=== PATIENT | female | born 1995 | race Caucasian/White ===

== ENCOUNTER 2020-05-27 12:50 | Emergency (ER) | payer OTHER, SELFPAY ==
[2020-05-27 13:07] VITALS: BP 133/77; PULSE 95; RESP 16; TEMP 36.8; O2SAT 100
--- NOTE | 2020-05-27 13:14 | ED.WOUNDLAC ---
HPI - Wound/Laceration General Chief Complaint: Wound/Laceration Stated Complaint: wound/sutures Time Seen by Provider: 05/27/20 13:09 Source: patient and RN notes reviewed Mode of arrival: ambulatory Limitations: no limitations History of Present Illness HPI narrative: Patient presents today complaining of a laceration to the left knee that was sustained 3 hours prior to arrival. Patient slipped in some water and fell as she was entering a truck, possibly cutting herself on a metal side rail. She is not up-to-date on her tetanus vaccine. Currently rates her pain 5/10. She cleaned with alcohol and applied a Band-Aid after the injury. She also took some ibuprofen. Related Data Home Medications Medication Instructions Recorded Confirmed paroxetine HCl mg PO 05/27/20 Allergies Allergy/AdvReac Type Severity Reaction Status Date / Time cyclobenzaprine Allergy Intermediate Confusion Verified 09/21/19 10:40 nickel Allergy Mild Hives / Verified 09/21/19 10:40 Red Face Review of Systems Review of Systems: Narrative: CONSTITUTIONAL: Denies body aches, fever, chills, or sweats. EYES: Denies visual changes, redness, or discharge. ENT: Denies rhinorrhea, congestion, sore throat, or otalgia. CARDIOVASCULAR: Denies chest pain, palpitations, or edema. RESPIRATORY: Denies cough or dyspnea. GASTROINTESTINAL: Denies abdominal pain, nausea, vomiting, or diarrhea. GENITOURINARY: Denies dysuria or hematuria. SKIN: Denies rash, itching. + Laceration to left knee MUSCULOSKELETAL: Denies back pain, joint pain, or myalgia. NEUROLOGIC: Denies headache, numbness, tingling, or weakness. PSYCH: Denies depression or anxiety. PMFSH Social History Social History Smoking status: Never smoker Second hand tobacco smoke exposure: No Alcohol intake: never Comments At time of signature, I have reviewed and agree with nursing past medical, surgical, social and family history unless otherwise noted. Please see nursing chart for further information. There is no relevant family history pertinent to the presenting complaint Exam Narrative: Exam Narrative: GENERAL: Well-appearing, well-nourished, and in no acute distress. HEAD: Normocephalic, atraumatic. EYES: EOMI. No redness or drainage. Conjunctivae normal. ENT: Mucous membranes pink and moist. NECK: Normal AROM. CHEST: No respiratory distress. EXTREMITIES: Normal range of motion. No edema. SKIN: Warm, dry, no rash. Capillary refill normal. Normal skin turgor.2.5cm full thickness flap laceration. No active bleeding, surrounding erythema, edema, or ecchymosis. No bony tenderness of the knee. NEURO: No focal deficits. Alert and oriented x3. Gait steady. PSYCH: Normal affect. No signs of depression or anxiety. Course Vital Signs Vital signs: Vital Signs Temperature 98.2 F 05/27/20 13:07 Pulse Rate 95 05/27/20 13:07 Respiratory Rate 16 05/27/20 13:07 Blood Pressure 133/77 05/27/20 13:07 Pulse Oximetry 100 05/27/20 13:07 Temperature 98.2 F 05/27/20 13:07 Pulse Rate 95 05/27/20 13:07 Respiratory Rate 16 05/27/20 13:07 Blood Pressure 133/77 05/27/20 13:07 Pulse Oximetry 100 05/27/20 13:07 Reviewed. Pt has been instructed to follow up with her PCP regarding her elevated blood pressure today. Procedures Laceration Laceration 1: Date: 05/27/20 Time: 13:17 Site: lower extremity Side (If applicable): left Size (cm): 2.5 Description: flap Depth: simple, single layer Local Anesthetic: lidocaine 1% Amount of anesthesia used (mL): 3 Pre-repair: wound explored and irrigated ====== Skin Level ====== Skin layer closed with: nylon Size (cm): 5-0 Number of sutures: 5 Technique: simple, interrupted ====== Subcutaneous Layer ====== ====== Muscle Layer ====== ====== Tendon Lay
[2020-05-27] MEDS: TETANUS,DIPHTHERIA,AC PERTUSSIS ADULT (0.5 ML) BOOSTRIX IM (13:18)
== END 2020-05-27 13:45 | disposition home or self-care (01) ==
PROVIDERS: Emergency Provider Nurse Practitioner; PCP Registered Nurse
DX: S81.012A Laceration without foreign body, left knee, initial encounter (principal); W01.0XXA Fall on same level from slipping, tripping and stumbling without subsequent striking against object, initial encounter; Z23 Encounter for immunization
CPT/HCPCS: 12001; 90471; 90715; 99212; G0463

== ENCOUNTER 2020-07-29 10:13 | Emergency (ER) | payer OTHER, SELFPAY ==
[2020-07-29 10:21] VITALS: BP 122/78; PULSE 82; RESP 16; TEMP 37; O2SAT 99
--- NOTE | 2020-07-29 10:28 | ED.URI ---
HPI - URI/Sore Throat General Chief Complaint: Upper Respiratory Infection Stated Complaint: Sore throat/Headache Time Seen by Provider: 07/29/20 10:28 Source: patient Mode of arrival: ambulatory Limitations: no limitations History of Present Illness HPI Narrative: Marianne Morris is a 25 yo female with a PMH of depression wh comes here with sinus drainage and tickle in throat that started yesterday at work. No N/V/D/fever. Related Data Home Medications Medication Instructions Recorded Confirmed paroxetine HCl 30 mg PO DAILY 05/27/20 07/29/20 Allergies Allergy/AdvReac Type Severity Reaction Status Date / Time cyclobenzaprine Allergy Intermediate Confusion Verified 07/29/20 10:27 nickel Allergy Mild Hives / Verified 07/29/20 10:27 Red Face Review of Systems Review of Systems: Narrative: CONSTITUTIONAL: Denies fever, chills, sweats. EYES: Denies visual changes, redness, discharge. ENT: Denies rhinorrhea, mild congestion, mild sore throat, otalgia. CARDIOVASCULAR: Denies chest pain, palpitations, edema. RESPIRATORY: Denies dyspnea, wheezing, cough GASTROINTESTINAL: Denies abdominal pain, nausea, vomiting, diarrhea. GENITOURINARY: Denies dysuria, hematuria, abnormal discharge SKIN: Denies rash or itching. NEUROLOGIC: Denies numbness, or focal weakness. PSYCHIATRIC: Denies anxiety or depression. [facility] Past Medical History Medical History Depression Social History Social History Smoking status: Never smoker Second hand tobacco smoke exposure: No Alcohol intake: never Gender identity (if verbalized by the patient): Female Comments At time of signature, I agree with nursing past medical, surgical, social and family history. There is no relevant family history pertinent to the presenting complaint. Exam Narrative: Exam Narrative: GENERAL: This is a well-nourished, well-developed patient, in mild distress. HEAD: normocephalic, atraumatic. EYES: Sclera clear/white. Vision is grossly intact. EARS: External ears normal, auditory canals clear and without drainage, TMs normal without perforation. Hearing grossly intact. NOSE: External nose normal without nasal discharge, nares without red, some rhinorrhea. THROAT: Mucous membranes moist, posterior pharynx mild erythema no exudate no swelling NECK: Neck supple, non-tender CARDIOVASCULAR: Regular rate and rhythm without murmurs, gallops, or rubs. RESPIRATORY: Clear to auscultation. Breath sounds equal bilaterally. No wheezes, rales, or rhonchi. GASTROINTESTINAL: Abdomen soft, SKIN: warm, intact with no suspicious lesions or rash, good texture and turgor. NEURO: awake, alert, and oriented to person, place and time. There were no obvious focal neurologic abnormalities. Steady gait EXTREMITIES: Normal range of motion. BACK: Nontender without deformity Course Course Emergency Course: Comes to express care with upper respiratory symptoms of rhinorrhea and mild sore throat, some hand symptoms Negative-Mucinex, Zyrtec, Cepacol lozenge Patient is to hydrate and rest; follow-up with PCP Vital Signs Vital signs: Vital Signs Temperature 98.6 F 07/29/20 10:21 Pulse Rate 82 07/29/20 10:21 Respiratory Rate 16 07/29/20 10:21 Blood Pressure 122/78 07/29/20 10:21 Pulse Oximetry 99 07/29/20 10:21 Temperature 98.6 F 07/29/20 10:21 Pulse Rate 82 07/29/20 10:21 Respiratory Rate 16 07/29/20 10:21 Blood Pressure 122/78 07/29/20 10:21 Pulse Oximetry 99 07/29/20 10:21 MDM - URI/Sore Throat Differential Diagnosis Differential diagnosis: Likely upper respiratory infection, otitis media, viral infection, pharyngitis and other Lab Data Labs: Strep Screen Presumptive Negative *(Reference Range: Negative)* Critical Care Time Critical Care Time Critical Ca
== END 2020-07-29 10:46 | disposition home or self-care (01) ==
PROVIDERS: Emergency Provider Nurse Practitioner; PCP Registered Nurse
DX: J06.9 Acute upper respiratory infection, unspecified (principal); F32.9 Major depressive disorder, single episode, unspecified
CPT/HCPCS: 87880; 99213; G0463

== ENCOUNTER → 2021-01-01 15:01 | Outpatient (CLI) | payer OTHER, SELFPAY ==
--- NOTE | ~2021-01-01 | XR_ITS ---
XR foot RT min 3V DATE: 01/01/2021 15:15 INDICATION: Right foot pain TECHNIQUE: 4 views COMPARISON: None FINDINGS: There is spurring of the first metatarsal head consistent with mild osteoarthritis at the f irst metatarsophalangeal joint. No fracture, dislocation, periosteal reaction or bone destruction, erosive change or calcaneal spur. IMPRESSION: Mild osteoarthritis at first metatarsophalangeal joint Reviewed, dictated and finalized at location A.
== END ==
PROVIDERS: PCP Internal Medicine; Visit Provider Internal Medicine
DX: M19.071 Primary osteoarthritis, right ankle and foot (principal)
CPT/HCPCS: 73630

== ENCOUNTER → 2021-01-26 01:12 | Outpatient (CLI) | payer OTHER, SELFPAY ==
[2021-01-26 18:52] LABS: SARS-CoV-2 RNA PCR Negative
== END ==
PROVIDERS: PCP Internal Medicine; Visit Provider Surgery
DX: Z01.812 Encounter for preprocedural laboratory examination (principal); Z20.822 Contact with and (suspected) exposure to COVID-19
CPT/HCPCS: C9803; U0003; U0005

== ENCOUNTER 2021-01-30 02:50 | Day surgery (SDC) | payer OTHER, SELFPAY ==
[2021-01-28 08:21] VITALS: BMI 22.6
--- NOTE | 2021-01-30 07:10 | WPDHPUPDATE1 ---
History and Physical Update Update Date/Time: 01/30/21 07:10 History and Physical has been reviewed, including an updated exam of the patient. There are NO changes in the patient's condition. Risks, benefits, and alternatives have been discussed and questions answered. Patient agrees to proceed with procedure.
[2021-01-30 09:56] VITALS: BMI 21.9
[2021-01-30] MEDS: LACTATED RINGERS 1,000 ML 30 ML IV CONT ×2 (09:56→14:00)
[2021-01-30] MEDS: ACETAMINOPHEN 500 MG TABLET 1000 MG PO (09:57)
[2021-01-30] MEDS: KETOROLAC 15 MG/ML VIAL (*BKC) IV PUSH (09:57)
[2021-01-30 10:09] VITALS: BP 107/66; PULSE 64; RESP 16; TEMP 36.6; O2SAT 100
--- NOTE | 2021-01-30 10:32 | WPDANESEPPF ---
Anes - Initial Pre Proc Eval Procedure: Operation Date: 01/30/21 11:30 Proposed Procedures p Excision Thrombosed External Hemorrhoid - Mk Butts MD Date/Time: 01/30/21 10:32 Surgeon: Mk Butts MD Pre Op Diagnosis: Thrombosed External Hemorrhoid Patient Data Age: 25 Gender: F Height: 5 ft 7 in Weight: 63.4 kg Last Vital Signs Temp 36.6 C 01/30/21 10:09 Pulse 64 01/30/21 10:09 Resp 16 01/30/21 10:09 BP 107/66 01/30/21 10:09 Pulse Ox 100 01/30/21 10:09 Allergies Allergy/AdvReac Type Severity Reaction Status Date / Time cyclobenzaprine Allergy Intermediate Confusion Verified 01/30/21 09:32 nickel Allergy Mild Hives / Verified 01/30/21 09:32 Red Face Home Medications Medication Instructions Recorded Confirmed Type paroxetine HCl 30 mg PO DAILY 05/27/20 01/30/21 History lorazepam 0.5 mg tablet 0.5 mg PO DAILY PRN 30 Days #10 11/27/20 01/30/21 Rx tablet levonorgestrel 20 mcg/24 hours (6 1 device INTRAUTERINE ONCE 01/16/21 01/28/21 History yrs) 52 mg intrauterine device Patient hx anesthesia problems: none Family hx anesthesia problems: none PMFSH Past Medical History Medical History Depression Hypertension Hyperthyroidism Mixed hyperlipidemia Surgical History Surgical History Hx of tonsillectomy S/P breast lumpectomy 2016 c/o Dr. Disla; 2019 at [facility] needs annual mammograms Family History Family History Other Anxiety Depression Social History Social History Smoking packs per day: 0.5 Smoking cigarettes per day: 10.0 Years smoked: 4 Smoking pack-years: 2.00 Smoking status: Former smoker Tobacco type: e-cigarettes/vaping Second hand tobacco smoke exposure: No Smoking end date: 01/01/17 Alcohol intake: current Drinks per week: 1 Substance use: current Substance use type: marijuana Other substance usage details: OIL Last use: 01/26/21 Living arrangements: with family Additional living arrangements comments: house with son (father not in home; sees every Thursday and every other weekend) and boyfriend Additional occupation/education comments: [employer] at [employer]; 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 Gender identity (if verbalized by the patient): Female Spiritual care concerns: No Agree to blood products: Yes Anes - Eval Final PreProcedure Day of Procedure 01/30/21 10:32 Patient weight: normal Heart: regular rate and rhythm Lungs: clear to auscultation Airway: Mallampati scale class 1 Neurological: alert and oriented Last oral intake: >/= 8 hours ASA classification: II Emergent: no Anesthetic plan: proceed Anesthesia type and monitoring: general GIVS and standard monitoring Informed Consent: The patient's anesthetic plan and its attendant risks and benefits were discussed with the patient/family/POA. Questions were solicited and answers provided to the satisfaction of the patient/family/POA.
[2021-01-30] MEDS: ceFAZolin 2 GM/D5W 50 ML 2 GM/50 ML BAG IVPB (11:56)
[2021-01-30] MEDS: BUPIVACAINE HCL 0.5% PF 30 ML VIAL INFILTRATE (12:15)
[2021-01-30 12:35] VITALS: BP 104/65; PULSE 68; RESP 16; O2SAT 98
--- NOTE | 2021-01-30 12:43 | PM.PROC ---
Procedure Note - Detailed Date of procedure: 01/30/21 Pre-op diagnosis: Thrombosed External Hemorrhoid Thrombosed external hemorrhoids Post-op diagnosis: other (Internal and external hemorrhoids, 2 complexes) Procedure performed: Excision left lateral and right posterior complexes of internal and external hemorrhoids Description of procedure: Brief history-patient has a history for the last 3 years of intermittent episodes of painful perianal nodules that would come and go. These had been bothering her recently as well. Exam in the office suggested these were thrombosed external hemorrhoids at the left lateral and right posterior complexes. She is taken to surgery now for excision of thrombosed external hemorrhoids. Findings-external hemorrhoids at the left lateral and right posterior complex is also had small internal hemorrhoids associated with them. Internal and external hemorrhoids were excised at both locations rather than excision of thrombosed external hemorrhoids. Procedure-the patient was taken to surgery and placed in prone darryl-knife position. IV sedation was administered. The buttocks were taped apart. Prep and drape was carried out. A small Hill-Guerrier anoscope was used to check the anal canal. Findings were as above. I then infiltrated local using 20 cc deep subdermal and 20 cc intrasphincteric. I then excised the left lateral internal and external hemorrhoidal complex. This was sent to pathology. The wound was closed with running locking 4 0 chromic suture. I went to the patient's right side and in similar fashion, excise the right posterior complex of internal and external hemorrhoids. Likewise, this wound was closed with running locking 4 0 chromic suture. I again checked the anal canal with a Hill-Guerrier small anoscope. All looked good and hemostasis was adequate. We dressed the rectal area with Xeroform gauze fluffs tape in Promise panties. The patient was returned to a supine position, awakened and taken to recovery in good condition. Sponge and needle counts were correct x2. Anesthesia: MAC and local (0.5% Marcaine with Exparel) Surgeon: Mk Butts MD Cheese Pancake Roller: Delroy OGDEN Estimated blood loss (mL): 5 Drains: No Packing: No Pathology: yes (Left lateral complex internal and external hemorrhoids, right posterior complex internal and external hemorrhoids) Complications: No immediate complications Condition: stable Disposition: same day Findings: Internal and external hemorrhoids at left lateral and right posterior positions.
[2021-01-30 13:05] VITALS: BP 109/65; PULSE 57; RESP 16
[2021-01-30] MEDS: ONDANSETRON INJ 4 MG/2 ML VIAL IV PUSH (13:36)
[2021-01-30 13:41] VITALS: BP 121/65; PULSE 62; RESP 16
[2021-01-30 14:00] VITALS: BP 110/67; PULSE 56; RESP 16
== END 2021-01-30 14:15 | disposition home or self-care (01) ==
PROVIDERS: PCP Internal Medicine; Visit Provider Surgery
PROC: (CPT 46260; principal; 2021-01-30 11:30)
DX: K64.5 Perianal venous thrombosis (principal); K64.8 Other hemorrhoids; I10 Essential (primary) hypertension; E78.2 Mixed hyperlipidemia; E05.90 Thyrotoxicosis, unspecified without thyrotoxic crisis or storm; F32.9 Major depressive disorder, single episode, unspecified; F17.290 Nicotine dependence, other tobacco product, uncomplicated; F12.90 Cannabis use, unspecified, uncomplicated
CPT/HCPCS: 46260; 88304; A9270; C9290; J0690; J1170; J1885; J2250; J2405; J2704; J3010; J7120

== ENCOUNTER 2021-02-09 00:22 | Emergency (ER) | payer OTHER, SELFPAY ==
[2021-02-09 00:35] VITALS: BP 102/68; PULSE 100; RESP 18; TEMP 36.6; O2SAT 96
--- NOTE | 2021-02-09 01:47 | PC.NURSE ---
Pt reports having a difficulty time holding enema. Pt has been up to commode and has voided. Significant other with pt.
--- NOTE | 2021-02-09 02:15 | PC.NURSE ---
Pt with large results from enema. Pt reports feeling much better. No new s/s.
--- NOTE | 2021-02-09 02:20 | ED.GENADULT ---
HPI - General Adult General Chief complaint: Abdominal Pain Stated complaint: cant urinate or have BM Time Seen by Provider: 02/09/21 00:55 History of Present Illness HPI narrative: Patient is a 25-year-old female who presents the emergency department with chief complaint of constipation. Patient reports that she had hemorrhoid surgery fairly recently and has was taking pain medications patient then reports that she has been unable to have a bowel movement and actually had difficulty urinating as well. The patient states that she feels as though she needs to have a bowel movement but cannot. Related Data Home Medications Medication Instructions Recorded Confirmed paroxetine HCl 30 mg PO DAILY 05/27/20 02/04/21 levonorgestrel 20 mcg/24 hours (6 1 device INTRAUTERINE ONCE 01/16/21 02/04/21 yrs) 52 mg intrauterine device Allergies Allergy/AdvReac Type Severity Reaction Status Date / Time cyclobenzaprine Allergy Intermediate Confusion Verified 02/04/21 15:22 nickel Allergy Mild Hives / Verified 02/04/21 15:22 Red Face Review of Systems Review of Systems: Narrative: A 10 system review of systems was completed on the patient and is negative except for what is stated in the HPI. Nursing and ancillary documentation was reviewed. [facility] Past Medical History Medical History Depression Hypertension Hyperthyroidism Mixed hyperlipidemia Surgical History Surgical History History of hemorrhoidectomy Excision left lateral and right posterior complexes of internal and external hemorrhoids Hx of tonsillectomy S/P breast lumpectomy 2016 c/o Dr. Disla; 2019 at [facility] annual mammograms Family History Family History Other Anxiety Depression Social History Social History Smoking packs per day: 0.5 Smoking cigarettes per day: 10.0 Years smoked: 4 Smoking pack-years: 2.00 Tobacco type: e-cigarettes/vaping Second hand tobacco smoke exposure: No Smoking end date: 10/19/16 Alcohol intake: current Drinks per week: 1 Substance use: current Substance use type: marijuana Other substance usage details: OIL Last use: 01/26/21 Additional living arrangements comments: house with son (father not in home; sees every Thursday and every other weekend) and boyfriend Additional occupation/education comments: 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 HEAD: Normocephalic, atraumatic. EYES: PERRLA and EOMI. ENT: Nares clear, no rhinorrhea or epistaxis. Mucous membranes moist. NECK: Supple. CHEST: Clear to auscultation. No respiratory distress. HEART: Regular rate and rhythm. No murmur heard. Normal peripheral pulses. ABDOMEN: Soft, nontender, nondistended, normal active bowel sounds. : Rectal exam there was a large amount of soft stool in the rectal vault it was brown in color EXTREMITIES: Normal range of motion. No edema. SKIN: Warm, dry, no rash. NEURO: No focal deficits. Alert and oriented x3. PSYCH: Normal mood and affect. Course Course Emergency Course: Patient received an enema in the emergency department had a small bowel movement was able to urinate and then had a large bowel movement and is feeling much better at this time Vital Signs Vital signs: Vital Signs Temperature 36.6 C 02/09/21 00:35 Pulse Rate 100 02/09/21 00:35 Respiratory Rate 18 02/09/21 00:35 Blood Pressure 102/68 02/09/21 00:35 Pulse Oximetry 96 02/09/21 00:35 Temperature 36.6 C
[2021-02-09 02:37] VITALS: BP 111/60; PULSE 82; RESP 16; O2SAT 99
== END 2021-02-09 02:37 | disposition home or self-care (01) ==
PROVIDERS: Emergency Provider Emergency Medicine; PCP Internal Medicine
DX: K56.41 Fecal impaction (principal); F32.9 Major depressive disorder, single episode, unspecified; I10 Essential (primary) hypertension; E05.90 Thyrotoxicosis, unspecified without thyrotoxic crisis or storm; E78.2 Mixed hyperlipidemia; F17.290 Nicotine dependence, other tobacco product, uncomplicated
CPT/HCPCS: 99283

== ENCOUNTER 2021-07-31 12:12 | Emergency (ER) | payer OTHER, SELFPAY ==
[2021-07-31 12:26] VITALS: BP 111/64; PULSE 88; RESP 16; TEMP 36.8; O2SAT 98
--- NOTE | 2021-07-31 18:15 | ED.URI ---
HPI - URI/Sore Throat General Chief Complaint: Upper Respiratory Infection Stated Complaint: Sore Throat,Ear,Headache Time Seen by Provider: 07/31/21 12:35 Source: patient and RN notes reviewed History of Present Illness HPI Narrative: Patient presents today complaining of 2-day history of fatigue, sore throat, ear pressure, and fever of 101 last night. Denies cough, rhinorrhea, nausea or vomiting. She has been taking DayQuil, NyQuil, and ibuprofen without much relief. Currently rates her pain a 5/10. She has not been vaccinated against COVID-19. MD elicited complaint: sore throat and nasal congestion Related Data Home Medications Medication Instructions Recorded Confirmed levonorgestrel 20 mcg/24 hours (7 1 device INTRAUTERINE ONCE 01/16/21 07/31/21 yrs) 52 mg intrauterine device Allergies Allergy/AdvReac Type Severity Reaction Status Date / Time cyclobenzaprine Allergy Intermediate Confusion Verified 07/31/21 12:23 nickel Allergy Mild Hives / Verified 07/31/21 12:23 Red Face Review of Systems Review of Systems: CONSTITUTIONAL: Denies body aches, chills, or sweats.+ Fever, fatigue EYES: Denies visual changes, redness, or discharge. ENT: + Sore throat, ear pressure, congestion CARDIOVASCULAR: Denies chest pain, palpitations, or edema. RESPIRATORY: Denies cough or dyspnea. GASTROINTESTINAL: Denies abdominal pain, nausea, vomiting, or diarrhea. GENITOURINARY: Denies dysuria or hematuria. SKIN: Denies rash, itching, or wounds. MUSCULOSKELETAL: Denies back pain, joint pain, or myalgia. NEUROLOGIC: Denies headache, numbness, tingling, or weakness. PSYCH: Denies depression or anxiety. [facility] Past Medical History Medical History Anxiety Depression Hypertension Hyperthyroidism Mixed hyperlipidemia Surgical History Surgical History History of hemorrhoidectomy (~11/2020) Excision left lateral and right posterior complexes of internal and external hemorrhoids Hx of tonsillectomy S/P breast lumpectomy (~2015) 2016 c/o Dr[address] Disla; [address] [facility] in [place] needs annual mammograms Family History Family History Other Anxiety Depression Social History Social History Smoking packs per day: 0.5 Smoking cigarettes per day: 10.0 Years smoked: 4 Smoking pack-years: 2.00 Tobacco type: e-cigarettes/vaping Second hand tobacco smoke exposure: No Smoking end date: 10/19/16 Alcohol intake: current Drinks per week: 2 Alcohol use details: Wine Substance use: current Substance use type: marijuana Other substance usage details: OIL Last use: 01/26/21 Additional living arrangements comments: house with boyfriend and 3 y/o son (father not in home; sees every Thursday and every other weekend) Additional occupation/education comments: 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 Please see nursing chart for further information. There is no relevant family history pertinent to the presenting complaint Exam Narrative: GENERAL: Well-appearing, well-nourished, and in no acute distress. HEAD: Normocephalic, atraumatic. EYES: EOMI. No redness or drainage. Conjunctivae normal. ENT: Mucous membranes pink and moist. Nares congested. No rhinorrhea. TMs normal bilaterally. Throat normal. Uvula midline. NECK: Normal AROM. Supple. No lymphadenopathy. CHEST: No respira
[2021-08-01 18:09] LABS: SARS-CoV-2 RNA PCR Negative
== END 2021-07-31 13:13 | disposition home or self-care (01) ==
PROVIDERS: Emergency Provider Nurse Practitioner; PCP Family Medicine
DX: J06.9 Acute upper respiratory infection, unspecified (principal); Z20.822 Contact with and (suspected) exposure to COVID-19; F17.200 Nicotine dependence, unspecified, uncomplicated; I10 Essential (primary) hypertension; E78.2 Mixed hyperlipidemia; E03.9 Hypothyroidism, unspecified
CPT/HCPCS: 87081; 87426; 87880; 99213; C9803; G0463; U0003; U0005

== ENCOUNTER 2022-03-18 10:05 | Emergency (ER) | payer BC, OTHER, SELFPAY ==
[2022-03-18 10:42] VITALS: BP 125/80; PULSE 63; RESP 16; TEMP 36.8; O2SAT 100
[2022-03-18 11:16] LABS: Basophils Absolute Auto 0.1 K/mm3 (0.0-0.1); Basophils Percent Auto 0.4 % (0.2-1.2); Eosinophils Percent Auto 0.2 % (0-4.4); Hematocrit 40.8 % (37.0-47.0); Hemoglobin 13.1 g/dL (12.0-15.0); Immature Granulocyte Absolute 0.06 K/mm3 (0.00-0.031); Immature Granulocyte Percent A 0.4 % (0-0.5); Lymphocytes Absolute Auto 1.15 K/mm3 (0.9-3.2); Lymphocytes Percent Auto 8.2 % (18.3-44.2); Mean Corpuscular HGB Conc 32.1 g/dl (32-36); Mean Corpuscular Hemoglobin 30.9 pg (26-34); Mean Corpuscular Volume 96.2 fl (80-100); Mean Platelet Volume 9.2 fl (7.4-10.4); Monocytes Absolute Auto 0.8 K/mm3 (0.1-0.6); Monocytes Percent Auto 5.8 % (2.6-8.5); Neutrophils Absolute Auto 11.9 K/mm3 (1.3-6.7); Platelet Count Result 307 k/mm3 (150-375); Red Blood Count 4.24 M/mm3 (4.2-5.4); Red Cell Distribution Width 12.3 % (11.5-14.5)
[2022-03-18 11:20] LABS: Appearance Urine Slightly Cloudy (Clear); Bilirubin Urine Negative (Negative); Blood Urine Negative (Negative); Color Urine Yellow (Yellow); Glucose Urine UA Negative (Negative); Ketones Urine Negative (Negative); Leukocyte Esterase Ur Negative LEU/UL (Negative); Nitrate Urine Negative (Negative); Protein Urine Negative (Negative); Urobilinogen Urine 0.2 mg/dL (<2.0)
[2022-03-18 11:30] LABS: Alanine Aminotransferase 23 U/L (6-35); Albumin Level 4.5 g/dL (3.5-5.1); Alkaline Phosphatase 66 U/L (38-126); Anion Gap 4 mmol/L (8-16); Aspartate Amino Transferase 35 U/L (14-36); Bilirubin,Total 0.2 mg/dL (0.2-1.3); Blood Urea Nitrogen 7 mg/dL (7-17); Carbon Dioxide 29 mmol/L (22-30); Chloride 104 mmol/L (98-107); Estimated Glomerular Filt Rate > 60; Glucose 105 mg/dL (65-110); Lipase 36 U/L (23-300); Potassium 3.9 mmol/L (3.4-5.0); Sodium 137 mmol/L (137-145)
[2022-03-18 11:48] LABS: Add Urine Microscopic? YES
[2022-03-18 11:52] LABS: Bacteria Urine Trace /hpf; Mucus Urine Rare /lpf; Squamous Epithelial Cell Urine Many /hpf (Few); WBC Urine 0-3 /hpf
--- NOTE | 2022-03-18 12:03 | ED.GENADULT ---
HPI - General Adult General Chief complaint: Ear Stated complaint: URI Time Seen by Provider: 03/18/22 11:36 Source: patient Mode of arrival: ambulatory Limitations: no limitations History of Present Illness HPI narrative: Patient is a 27-year-old female who presents to the ED with viral type symptoms. Patient reports having headache, chills, fever, sweats, sore throat, right-sided otalgia, fatigue, mylagias for the past 2 days, starting yesterday morning. Reports fever was up to 101 degrees at home. She has been taking Tylenol and ibuprofen. Also reports having nausea and vomiting yesterday, along with diarrhea. No blood in the vomit or stool. No abdominal pain. No urinary symptoms. No cough, congestion, rhinorrhea. She denies any family members or close contacts with similar symptoms. She is not vaccinated for COVID or flu. Related Data Home Medications Medication Instructions Recorded Confirmed levonorgestrel 20 mcg/24 hours (7 1 device intrauterine ONCE 01/16/21 10/03/21 yrs) 52 mg intrauterine device (Mirena) Allergies Allergy/AdvReac Type Severity Reaction Status Date / Time cyclobenzaprine Allergy Intermediate Confusion Verified 10/03/21 09:59 nickel Allergy Mild Hives / Verified 10/03/21 09:59 Red Face Review of Systems Review of Systems: CONSTITUTIONAL: Reports fatigue, fever, chills, and sweats. ENT: Reports sore throat, R otalgia. Denies rhinorrhea, congestion. CARDIOVASCULAR: Denies chest pain. RESPIRATORY: Denies cough or dyspnea. GASTROINTESTINAL: Reports N/V/D. Denies abdominal pain, rectal bleeding, hematemesis. GENITOURINARY: Denies dysuria or hematuria. MUSCULOSKELETAL: Reports myalgias. NEUROLOGIC: Reports COOK. Denies numbness, or weakness. All systems reviewed & are unremarkable except as noted in HPI and below PMFSH Past Medical History Medical History Anxiety Depression Hx of cyst of breast Fibroid adenoma 2015, 2019 Hypertension Hyperthyroidism Mixed hyperlipidemia Surgical History Surgical History History of hemorrhoidectomy (~11/2020) Excision left lateral and right posterior complexes of internal and external hemorrhoids Hx of tonsillectomy S/P breast lumpectomy (~2016) 2016 c/o Dr. Disla; [address] [facility] in [place] needs annual mammograms Family History Family History Other Anxiety Depression Social History Social History Smoking packs per day: 0.5 Smoking cigarettes per day: 10.0 Years smoked: 4 Smoking pack-years: 2.00 Smoking status: Former smoker Tobacco type: e-cigarettes/vaping Second hand tobacco smoke exposure: No Smoking end date: 10/19/16 Alcohol intake: current Drinks per week: 1 Alcohol use details: Wine Substance use: current Substance use type: marijuana Other substance usage details: OIL Last use: 01/26/21 Additional living arrangements comments: house with son (father not in home; sees every Thursday and every other weekend) and boyfriend 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 HEAD: Normocephalic, atraumatic. EYES: PERRL/EOMI, conjunctivae clear bilaterally. NOSE: Normal, no drainage. EARS: Right EAC erythematous and swollen. Right TM clear. Left TM bulging with what appears to be serous fluid behind, but no erythema. No swelling or erythema of EAC on left. THROAT: Pharynx clear, posterior erythema, no exudate. MMs moist.
[2022-03-18] MEDS: SODIUM CHLORIDE 0.9% IV 1,000 ML 999 ML IV CONT (12:25)
[2022-03-18] MEDS: ONDANSETRON INJ 4 MG/2 ML VIAL IV PUSH (12:26)
[2022-03-18] MEDS: KETOROLAC 30 MG/ML VIAL (*BKC) IV PUSH (12:26)
[2022-03-18 13:18] LABS: Influenza A QL RT-PCR Negative (Negative); Influenza B QL RT-PCR Negative (Negative); SARS-CoV-2 RNA PCR Negative
[2022-03-18 14:07] VITALS: BP 126/74; PULSE 74; RESP 18; O2SAT 100
== END 2022-03-18 14:27 | disposition home or self-care (01) ==
PROVIDERS: Physician Assistant; Emergency Provider Emergency Medicine; PCP Family Medicine
DX: H60.90 Unspecified otitis externa, unspecified ear (principal); B34.9 Viral infection, unspecified; I10 Essential (primary) hypertension; Z87.891 Personal history of nicotine dependence; Z20.822 Contact with and (suspected) exposure to COVID-19
CPT/HCPCS: 36415; 80053; 81001; 81025; 83690; 85025; 87502; 96361; 96374; 96375; 99284; C9803; J1885; J2405; J7030; U0003; U0005

== ENCOUNTER 2022-05-14 14:36 | Emergency (ER) | payer OTHER, SELFPAY ==
[2022-05-14 14:48] VITALS: BP 122/80; PULSE 92; RESP 16; TEMP 36.6; O2SAT 100
--- NOTE | 2022-05-14 14:52 | ED.UPPEXIN ---
HPI - Extremity Injury (Upper) General Chief Complaint: Extremity Injury, Lower Stated Complaint: swelling left arm Time Seen by Provider: 05/14/22 14:55 Source: patient, RN notes reviewed and old records reviewed Mode of arrival: ambulatory Limitations: no limitations History of Present Illness HPI narrative: 27-year-old female presents to the [facility] with left upper arm pain. Patient reports 8 days ago she attempted to do a plasma donation from that arm, they missed the vein and a large hematoma developed. States it is slowly improving. Noticed on Thursday that she still had some increased pain to the left medial upper arm with redness, swelling and tenderness. Noticed a little 1 cm area at the proximal end of the redness. Has full range of motion of the shoulder, wrist and elbow. Positive radial pulse. Capillary refill is under 2 seconds with sensation intact in all 5 fingers. Redness measures 3-1/2 x 6-1/2 cm Onset (ago): day(s) (8) Related Data Home Medications Medication Instructions Recorded Confirmed levonorgestrel 20 mcg/24 hours (7 1 device intrauterine ONCE 01/16/21 04/03/22 yrs) 52 mg intrauterine device (Mirena) Allergies Allergy/AdvReac Type Severity Reaction Status Date / Time cyclobenzaprine Allergy Intermediate Confusion Verified 03/27/22 11:34 nickel Allergy Mild Hives / Verified 03/27/22 11:34 Red Face Review of Systems Review of Systems: All systems reviewed & are unremarkable except as noted in HPI and below Constitutional: Constitutional: Reports no additional constitutional complaints, Denies chills and Denies fever(s) Eyes: Eyes: Reports no additional eye complaints ENT: Reports system reviewed and no additional complaints, except as documented Cardiovascular: Cardiovascular: Reports no additional cardiovascular complaints Respiratory: Respiratory: Reports no additional respiratory complaints Gastrointestinal: Gastrointestinal: Reports no additional gastrointestinal complaints Musculoskeletal: Musculoskeletal: Reports as per HPI Integumentary/Breasts: Skin/Breast: Reports as per HPI and Reports erythema Neurologic: Reports system reviewed and no additional complaints, except as documented Psychiatric: Psychiatric: Reports no additional psychiatric complaints Allergic/Immunologic: Allergic/Immunologic: Reports no additional allergic/immunologic complaints PMFSH Past Medical History Medical History Anxiety Depression Hx of cyst of breast Fibroid adenoma 2015, 2018 Hypertension Hyperthyroidism Mixed hyperlipidemia Surgical History Surgical History History of hemorrhoidectomy (~11/2020) Excision left lateral and right posterior complexes of internal and external hemorrhoids Hx of tonsillectomy S/P breast lumpectomy (~2015) 2015 c/o Dr. Disla; 2019 at [facility] annual mammograms Family History Family History Other Anxiety Depression Social History Social History Smoking packs per day: 0.5 Smoking cigarettes per day: 10.0 Years smoked: 4 Smoking pack-years: 2.00 Smoking status: Former smoker Tobacco type: e-cigarettes/vaping Second hand tobacco smoke exposure: No Smoking end date: 10/19/16 Alcohol intake: current Drinks per week: 1 Alcohol use details: Wine Substance use: current Substance use type: marijuana Other substance usage details: OIL Last use: 01/26/21 Additional living arrangements comments: house with son (father not in home; sees every Thursday and every other weekend) and boyfriend Additional occupation/education comments: [employer] at [employer]; student to be a [employer] Gender identity (if verbalized by the patient): Female Sexual Orientation
== END 2022-05-14 15:03 | disposition short-term general hospital (02) ==
PROVIDERS: Emergency Provider Nurse Practitioner
DX: M79.622 Pain in left upper arm (principal); E05.90 Thyrotoxicosis, unspecified without thyrotoxic crisis or storm; E78.2 Mixed hyperlipidemia; Z87.891 Personal history of nicotine dependence; F41.9 Anxiety disorder, unspecified; F32.A Depression, unspecified
CPT/HCPCS: 99212; 99213; G0463

== ENCOUNTER 2022-05-14 15:15 | Emergency (ER) | payer OTHER, SELFPAY ==
--- NOTE | ~2022-05-14 | US_ITS ---
EXAMINATION: US venous doppler UE LT DATE: 05/14/2022 16:11 INDICATION: Left upper extremity pain. Focal upper arm mass/pain. TECHNIQUE: Grayscale ultrasound images without and with compression and Doppler ultrasound images of the left upper extremity veins were obtained. COMPARISON: None.. FINDINGS: The visualized portions of the left internal jugular vein, subclavian vein, axillary vein, brachial v eins, basilic vein, cephalic vein, radial vein, and ulnar vein are patent. There is a bilobed 1.0 x 0 .5 x 0.7 cm lymph node in the region of interest measuring up to 0.5 cm in short axis diameter. IMPRESSION: 1. No deep venous thrombosis. 2. Lymph node in the region of interest, measuring 1.0 x 0.5 x 0.7 cm, 0.5 cm in short axis diameter. Reviewed, dictated and finalized at location K. IMPRESSION: 1. No deep venous thrombosis. 2. Lymph node in the region of interest, measuring 1.0 x 0.5 x 0.7 cm, 0.5 cm i n short axis diameter.
[2022-05-14 15:16] VITALS: BP 134/90; PULSE 107; RESP 20; TEMP 36.6; O2SAT 99
--- NOTE | 2022-05-14 15:31 | ED.EXTPRO ---
HPI - Extremity Problem General Chief complaint: Extremity Problem,Nontraumatic Stated complaint: possible blood clot in L arm Time Seen by Provider: 05/14/22 15:22 History of Present Illness HPI Narrative: 27-year-old female presents to the emergency room for evaluation of pain to her left upper extremity. Patient states about a week ago she donated plasma and, the groundhand infiltrated her access. Patient was complaining of swelling and pain proximal to the attempted access site in the antecubital. Patient was seen in the urgent care prior to arrival, and was recommended to come here for ultrasound of the extremity. Related Data Home Medications Medication Instructions Recorded Confirmed levonorgestrel 20 mcg/24 hours (7 1 device intrauterine ONCE 01/16/21 05/14/22 yrs) 52 mg intrauterine device (Mirena) Allergies Allergy/AdvReac Type Severity Reaction Status Date / Time cyclobenzaprine Allergy Intermediate Confusion Verified 05/14/22 15:22 nickel Allergy Mild Hives / Verified 05/14/22 15:22 Red Face Review of Systems Review of Systems: CONSTITUTIONAL: Denies fever, chills, or sweats. EYES: Denies visual changes, redness, or discharge. ENT: Denies rhinorrhea, congestion, sore throat, or otalgia. CARDIOVASCULAR: Denies chest pain, palpitations, or edema. RESPIRATORY: Denies cough or dyspnea. GASTROINTESTINAL: Denies abdominal pain, nausea, vomiting, or diarrhea. GENITOURINARY: Denies dysuria or hematuria. SKIN: Denies rash or itching. MUSCULOSKELETAL: Left upper extremity pain NEUROLOGIC: Denies headache, numbness, dizziness, or weakness. PSYCHIATRIC: Denies anxiety or depression. [facility] Past Medical History Medical History Anxiety Depression Hx of cyst of breast Fibroid adenoma 2015, 2018 Hypertension Hyperthyroidism Mixed hyperlipidemia Surgical History Surgical History History of hemorrhoidectomy (~11/2020) Excision left lateral and right posterior complexes of internal and external hemorrhoids Hx of tonsillectomy S/P breast lumpectomy (~2015) 2016 c/o Dr. Disla; 2019 at [facility] needs annual mammograms Family History Family History Other Anxiety Depression Social History Social History Smoking packs per day: 0.5 Smoking cigarettes per day: 10.0 Years smoked: 4 Smoking pack-years: 2.00 Smoking status: Former smoker Tobacco type: e-cigarettes/vaping Second hand tobacco smoke exposure: No Smoking end date: 10/19/16 Alcohol intake: current Drinks per week: 1 Alcohol use details: Wine Substance use: current Substance use type: marijuana Other substance usage details: OIL Last use: 01/26/21 Additional living arrangements comments: house with son (father not in home; sees every Thursday and every other weekend) and boyfriend 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 HEAD: Normocephalic, atraumatic. EYES: Conjunctivae normal, PERRLA and EOMI. CHEST: Clear to auscultation. No respiratory distress. No wheezes rales or rhonchi. No tenderness. HEART: Regular rate and rhythm. No murmur heard. Normal peripheral pulses. EXTREMITIES: Left upper extremity: Bruising in advance stages of healing to left upper extremity, small, tender mobile mass left medial bicep SKIN: Warm, dry, no rash. No noted wounds NEURO: No focal deficits. Alert and oriented x3. MA
== END 2022-05-14 16:44 | disposition home or self-care (01) ==
PROVIDERS: Emergency Provider Nurse Practitioner Family; PCP Family Medicine
DX: M79.602 Pain in left arm (principal); R59.1 Generalized enlarged lymph nodes; F41.9 Anxiety disorder, unspecified; F32.9 Major depressive disorder, single episode, unspecified; I10 Essential (primary) hypertension; E05.90 Thyrotoxicosis, unspecified without thyrotoxic crisis or storm
CPT/HCPCS: 93971; 99212; 99284; G0463

== ENCOUNTER 2023-06-18 15:21 | Emergency (ER) | payer BC, OTHER, SELFPAY ==
[2023-06-18 15:30] VITALS: BP 137/83; PULSE 88; RESP 12; TEMP 37.3; O2SAT 100
--- NOTE | 2023-06-18 16:23 | ED.URI ---
HPI - URI/Sore Throat General Chief Complaint: Upper Respiratory Infection Stated Complaint: sore throat,pressure in head, fever Time Seen by Provider: 06/18/23 16:24 Source: patient, RN notes reviewed and old records reviewed Mode of arrival: ambulatory Limitations: no limitations History of Present Illness HPI Narrative: 28 year old female who [facility] with complaints of sore throat, pressure in her head,and fever which started last night. Patient reports that she has been taking DayQuil for her symptoms. Patient reports that she has had some low grade temperature, denies any body aches. MD elicited complaint: fever, sore throat and other (pressure in head) Pertinent past history: sinusitis Onset (ago): day(s) (1) Severity: moderate Pain scale (0-10): 5 Able to tolerate fluids by mouth: Yes Treatments prior to arrival: other (DayQuil) Related Data Home Medications Medication Instructions Recorded Confirmed levonorgestrel 21 mcg/24 hours (8 1 device intrauterine ONCE 01/16/21 06/18/23 yrs) 52 mg intrauterine device (Mirena) Allergies Allergy/AdvReac Type Severity Reaction Status Date / Time cyclobenzaprine Allergy Intermediate Confusion Verified 06/18/23 15:47 nickel Allergy Mild Hives / Verified 06/18/23 15:47 Red Face Review of Systems Review of Systems: CONSTITUTIONAL:Reports malaise, chills, sweats, or fever. EYES: Denies visual changes, redness, or discharge. ENT: Reports rhinorrhea, congestion, sinus pain,no otalgia positive for sore throat. CARDIOVASCULAR: Denies chest pain, palpitations, or edema. RESPIRATORY: Reports no cough.? Denies dyspnea. GASTROINTESTINAL: Denies abdominal pain, nausea, vomiting, diarrhea SKIN: Denies rash or itching. MUSCULOSKELETAL: Denies myalgia. NEUROLOGIC: Reports headache. All systems reviewed & are unremarkable except as noted in HPI and below PMFSH Past Medical History Medical History Anxiety Depression Hx of cyst of breast Fibroid adenoma 2015, 2019 Hypertension Hyperthyroidism Mixed hyperlipidemia Surgical History Surgical History History of hemorrhoidectomy (~11/2020) Excision left lateral and right posterior complexes of internal and external hemorrhoids Hx of tonsillectomy S/P breast lumpectomy (~2016) 2016 c/o Dr. Disla; 2019 at [facility] in [place] needs annual mammograms Family History Family History Other Anxiety Depression Social History Social History Smoking packs per day: 0.5 Smoking cigarettes per day: 10.0 Years smoked: 4 Smoking pack-years: 2.00 Smoking status: Former smoker Tobacco type: e-cigarettes/vaping Second hand tobacco smoke exposure: No Smoking end date: 10/19/16 Alcohol intake: current Drinks per week: 1 Alcohol use details: Wine Substance use: former Substance use type: marijuana Other substance usage details: OIL Last use: 01/26/21 Living arrangements: with family Additional living arrangements comments: house with son (father not in home; sees every Thursday and every other weekend) and boyfriend Occupation/Education: occupation 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 There is no relevant family history pertinent to the presenting complaint Exam Narrative: GENERAL: Well-appearing, well-nourished, and in no acute distress. HEAD: Normocephalic
== END 2023-06-18 17:05 | disposition home or self-care (01) ==
PROVIDERS: Emergency Provider Registered Nurse; PCP Family Medicine
DX: J06.9 Acute upper respiratory infection, unspecified (principal); I10 Essential (primary) hypertension; E05.90 Thyrotoxicosis, unspecified without thyrotoxic crisis or storm; E78.2 Mixed hyperlipidemia; Z87.891 Personal history of nicotine dependence
CPT/HCPCS: 87081; 87804; 87880; 99213; G0463

== ENCOUNTER 2023-08-05 10:40 | Emergency (ER) | payer OTHER, SELFPAY ==
--- NOTE | 2023-08-05 10:50 | ED.GENADULT ---
HPI - General Adult General Chief complaint: Eye Problems Stated complaint: Eyes Irritation/Sore Throat Time Seen by Provider: 08/05/23 10:50 Source: patient, RN notes reviewed and old records reviewed Mode of arrival: ambulatory Limitations: no limitations History of Present Illness HPI narrative: 28-year-old female presents to the [facility] with complaints bilateral eye irritation, states that she woke up with goopy eyes yesterday. Has had congestion, runny nose, cough States that she took ibuprofen and Tylenol cold medicine yesterday. Related Data Home Medications Medication Instructions Recorded Confirmed levonorgestrel 21 mcg/24 hours (8 1 device intrauterine ONCE 01/16/21 07/10/23 yrs) 52 mg intrauterine device (Mirena) Allergies Allergy/AdvReac Type Severity Reaction Status Date / Time cyclobenzaprine Allergy Intermediate Confusion Verified 08/05/23 10:50 nickel Allergy Mild Hives / Verified 08/05/23 10:50 Red Face Review of Systems Review of Systems: All systems reviewed & are unremarkable except as noted in HPI and below Constitutional: Constitutional: Reports no additional constitutional complaints Eyes: Eyes: Reports as per HPI ENT: Reports as per HPI, Reports nasal congestion, Reports post nasal drip and Reports sinus pressure Cardiovascular: Cardiovascular: Reports no additional cardiovascular complaints, Denies chest pain and Denies dyspnea Respiratory: Respiratory: Reports no additional respiratory complaints, Denies chest congestion, Denies cough and Denies dyspnea Gastrointestinal: Gastrointestinal: Reports no additional gastrointestinal complaints, Denies abdominal pain, Denies nausea and Denies vomiting Musculoskeletal: Musculoskeletal: Reports no additional musculoskeletal complaints Integumentary/Breasts: Skin/Breast: Reports system reviewed and no additional complaints, except as docu Neurologic: Reports system reviewed and no additional complaints, except as documented Psychiatric: Psychiatric: Reports no additional psychiatric complaints Allergic/Immunologic: Allergic/Immunologic: Reports no additional allergic/immunologic complaints PMFSH Past Medical History Medical History Anxiety Depression Hx of cyst of breast Fibroid adenoma 2015, 2018 Hypertension Hyperthyroidism Mixed hyperlipidemia Surgical History Surgical History History of hemorrhoidectomy (~11/2020) Excision left lateral and right posterior complexes of internal and external hemorrhoids Hx of tonsillectomy S/P breast lumpectomy (~2015) 2016 c/o Dr. Disla; 2019 at [facility] in [place] needs annual mammograms Family History Family History Other Anxiety Depression Social History Social History Smoking packs per day: 0.5 Smoking cigarettes per day: 10.0 Years smoked: 4 Smoking pack-years: 2.00 Smoking status: Former smoker Tobacco type: e-cigarettes/vaping Second hand tobacco smoke exposure: No Smoking end date: 10/19/16 Alcohol intake: current Drinks per week: 1 Alcohol use details: Wine Substance use: former Substance use type: marijuana Other substance usage details: OIL Last use: 01/26/21 Lack of Transportation: No Lack of Food: Never True Current Housing: I Have Housing Concerned About Future Housing: No Difficulty Paying Gas/Electric Bills: No Difficulty Paying for Meds: No Currently Unemployed: No Education: Associate Degree Difficulty w/ Childcare or Family Care: No Living arrangements: with family Additional living arrangements comments: house with son (father not in home; sees every Thursday and every other weekend) and boyfriend Occupation/Education: occupation Additional occupation/education comments: [place]
[2023-08-05 10:53] VITALS: BP 134/84; PULSE 73; RESP 16; TEMP 36.8; O2SAT 100
== END 2023-08-05 11:20 | disposition home or self-care (01) ==
PROVIDERS: Emergency Provider Nurse Practitioner; PCP Family Medicine
DX: H10.33 Unspecified acute conjunctivitis, bilateral (principal); J06.9 Acute upper respiratory infection, unspecified; J32.9 Chronic sinusitis, unspecified; Z20.822 Contact with and (suspected) exposure to COVID-19; R09.82 Postnasal drip; Z87.891 Personal history of nicotine dependence; I10 Essential (primary) hypertension; E05.90 Thyrotoxicosis, unspecified without thyrotoxic crisis or storm; E78.2 Mixed hyperlipidemia
CPT/HCPCS: 87081; 87426; 87804; 87880; 99213; C9803; G0463

== ENCOUNTER 2024-07-18 13:56 | Outpatient (CLI) | payer OTHER, SELFPAY ==
[2024-07-18 18:53] LABS: Basophils Absolute Auto 0.1 K/mm3 (0.0-0.1); Basophils Percent Auto 0.9 % (0.2-1.2); Eosinophils Absolute Auto 0.1 K/mm3 (0-0.3); Eosinophils Percent Auto 2.2 % (0-4.4); Hematocrit 41.7 % (37.0-47.0); Hemoglobin 13.5 g/dL (12.0-15.0); Immature Granulocyte Absolute 0.03 K/mm3 (0.00-0.031); Immature Granulocyte Percent A 0.5 % (0-0.5); Lymphocytes Absolute Auto 2.04 K/mm3 (0.9-3.2); Mean Corpuscular HGB Conc 32.4 g/dl (32-36); Mean Corpuscular Hemoglobin 31.2 pg (26-34); Mean Corpuscular Volume 96.3 fl (80-100); Monocytes Absolute Auto 0.5 K/mm3 (0.1-0.6); Monocytes Percent Auto 7.9 % (2.6-8.5); Neutrophils Absolute Auto 3.1 K/mm3 (1.3-6.7); Neutrophils Percent Auto 53.5 % (45.5-73.1); Platelet Count Result 282 k/mm3 (150-375); Red Blood Count 4.33 M/mm3 (4.2-5.4); Red Cell Distribution Width 11.7 % (11.5-14.5); White Blood Count 5.8 K/mm3 (4.5-10.0)
[2024-07-18 19:08] LABS: Alanine Aminotransferase 36 U/L (6-35); Albumin Level 4.7 g/dL (3.5-5.1); Alkaline Phosphatase 65 U/L (38-126); Anion Gap 7 mmol/L (4-12); Aspartate Amino Transferase 37 U/L (14-36); Bilirubin,Total 0.6 mg/dL (0.2-1.3); Blood Urea Nitrogen 9 mg/dL (7-17); Calcium 9.8 mg/dL (8.4-10.2); Carbon Dioxide 28 mmol/L (22-30); Chloride 101 mmol/L (98-107); Cholesterol 220 mg/dL (0-200); Estimated Glomerular Filt Rate > 60; Glucose 89 mg/dL (65-110); HDL Direct 76 mg/dL; Potassium 4.5 mmol/L (3.4-5.0); Sodium 136 mmol/L (137-145); Triglycerides 168 mg/dL (<150)
[2024-07-18 19:18] LABS: LDL Cholesterol Direct 101 mg/dL
[2024-07-18 19:32] LABS: Thyroid Stimulating Hormone 0.243 uIU/mL (0.465-4.680)
== END 2024-07-18 13:57 | disposition home or self-care (01) ==
LOC: ANHGOSHLAB 13:57
PROVIDERS: PCP Family Medicine; Visit Provider Student in an Organized Health Care Education/Training Program
DX: E78.2 Mixed hyperlipidemia (principal); F41.9 Anxiety disorder, unspecified; F32.9 Major depressive disorder, single episode, unspecified; R41.840 Attention and concentration deficit; F17.200 Nicotine dependence, unspecified, uncomplicated
CPT/HCPCS: 36415; 80053; 80061; 84443; 85025

== ENCOUNTER 2024-12-30 12:33 | Outpatient (CLI) | payer OTHER, SELFPAY ==
--- OUTSIDE RECORDS SUMMARY | 2024-12-30 12:38 | XMS_ITS | Clinical Summary ---
Author Organization [facility] Address [facility] [place] [address] Care Team Providers Care Energy Advisor Name Role Phone Yazan Sammi GOLD NIB GRINDER Primary Care Provider [phone] Allergies Active Allergy Reactions Criticality Noted Date Comments Cyclobenzaprine Hallucinations 01/23/2016 Nickel Rash Low 07/24/2024 Medications levonorgestrel (MIRENA, 52 MG,) 20 MCG/24HR IUD 20 mcg by Intrauterine route. Active multi vitamin/minerals tablet Take 1 tablet by mouth daily. Active LORazepam 0.5 MG tabletIndications: Anxiety Take 1 tablet (0.5 mg total) by mouth every 8 (eight) hours as needed for Anxiety. 30 tablet 09/11/20 20 Active PAROXETINE 40 MG tabletIndications: Anxiety,Recurrent major depressive disorder, in partial remission TAKE 1 TABLET BY MOUTH EVERY DAY 90 tablet 1 03/28/20 21 Active ciprofloxacin-dexa methasone otic suspension 03/18/20 22 Active HYDROcodone-acetam inophen 5-325 MG tabletIndications: Acute Pain < 3 Day Supply Take 1 tablet by mouth every 6 (six) hours as needed for Pain. Indications: Acute Pain < 3 Day Supply 10 tablet 03/19/20 22 Active famotidine (PEPCID) 20 MG tablet Take 1 tablet (20 mg total) by mouth 2 (two) times daily. 20 tablet 07/24/20 24 Active guaiFENesin 400 MG Tab Take 1 tablet by mouth 2 (two) times daily. 20 tablet 07/24/20 24 Active ondansetron (ZOFRAN-ODT) 4 MG disintegrating tablet Take 1 tablet (4 mg total) by mouth every 8 (eight) hours as needed for Nausea. 20 tablet 09/30/20 24 Active Active Problems Problem Noted Date Diagnosed Date Recurrent major depressive disorder, in partial remission 03/22/2019 BMI 23.0-23.9, adult 05/03/2018 Anxiety 04/26/2014 Resolved Problems Problem Noted Date Diagnosed Date Resolved Date Influenza vaccine needed 07/13/201708/2020 test positive ([facility]) 07/13/2017 03/22/2019 Encounter for preventive health examination 01/04/2013 06/29/2020 Family History * Patient is adopted Relation Status Comments Father Alive Mother Alive Son Alive Social History Tobacco Use Types Packs/Day Years Used Date Smoking Tobacco: Every Day Electronic Cigarettes Smokeless Tobacco: Never Tobacco Cessation:Ready to Q uit: Not Asked; Counseling Given: Not Answered Comments:smoker - quit 2016, now ecig with 3 mg of kathrin that last 3 weeks. Alcohol Use Standard Drinks/Week Comments Yes 0 (1 standard drink = 0.6 oz pur e alcohol) 1x week PHQ-2 Answer Date Recorded PHQ-2 Score 2 09/24/2019 Comments No Sex and Gender Information Value Date Recorded Sex Assigned at Not on file Legal Sex Female 5:47 PM CDT Gender Identity Not on file Sexual Orientation Not on file Last Filed Vital Signs Vital Sign Reading Time Taken Comments Blood Pressure 130/84 09/30/2024 8:56 AM PLUMBER APPRENTICE Pulse 80 09/30/2024 8:56 AM PLUMBER APPRENTICE Temperature 36.7 C (98 F) 09/30/2024 8:56 AM PLUMBER APPRENTICE Respiratory Rate 15 09/30/2024 8:56 AM PLUMBER APPRENTICE Oxygen Saturation 97% 09/30/2024 8:56 AM PLUMBER APPRENTICE Inhaled Oxygen Concentration - - Weight 85.8 kg (189 lb 2.5 oz) 09/30/2024 7:56 A M PLUMBER APPRENTICE Height 172.7 cm (5' 8 ) 09/30/2024 7:56 AM PLUMBER APPRENTICE Body Mass Index 28.76 09/30/2024 7:56 AM PLUMBER APPRENTICE Plan of Treatment Health Maintenance Due Date Last Done Comments Annual Physical 02/15/1999 Pneumococcal Vaccine: Pediatrics (0 to 5 Years) and At-Risk Patients (6 to 64 Years) (1 of 2 - PCV) 02/15/2002 COVID-19 Vaccine (3 - season) 2024 03/11/2023, 01/07/2023 Influenza Adult (#1) 2024 08/02/2023 Cervical Cancer Screening Pap Smear (Age 21 to 29) Every 3 Years 11/14/2025 11/14/2022, 11/14/2022, 11/14/2022 Cervical Cancer Screening 11/14/2025 DTaP, Tdap and Td Vaccines (6 - Td or Tdap) 05/27/2030 05/27/2020, 11/16/2009, 07/08/2001, Additional history exists Hepatitis B Vaccines Completed 1996, 1996, 1996 Meningococcal Vaccine Aged Out 11/16/2009 No agnieszka leonor eligible based on patient's age to complete this topic Hepatitis C Completed 09/18/2020 HPV Vaccines Aged Out No longer eligi ble based on patient's age to complete this topic Meningococcal B Vaccine Aged Out No l onger eligible based on patient's age to complete this topic RSV Immunizations Under 20 Months Aged Out No longer eligible based on patient's age to complete this topic Procedures Procedure Name Priority Date/Time Associated Diagnosis Comments HEPATITIS C ANTIBODY W/RFX TO HCV RNA Routine 09/18/2020 1:26 PM PLUMBER APPRENTICE from Last 3 Months or Most Recently Relevant to Health Maintenance Results * HEPATITIS C ANTIBODY W/RFX TO HCV RNA (09/18/2020 1:26 PM PLUMBER APPRENTICE) HEPATITIS C AB NON-REACTI VE NON-REACT RU [facility] SIGNAL TO CUTOFF 0.02 <[address] [facility] Comment: HCV antibody was non-reactive. There is no laboratory evidence of HCV infection. In most cases, no further action is required. However, if recent HCV exposure is suspected, a test for HCV RNA (test code 85883) is suggested. For additional information please refer to http://education.OSIX/faq/WEL75z9 (This link is being provided for informational/ educational purposes only.) 09/18/2020 1:26 PM PLUMBER APPRENTICE 09/18/2020 1:28 PM PLUMBER APPRENTICE Narrative [facility] - 09/19/2020 10:08 AM PLUMBER APPRENTICE FASTING:NO FASTING: NO us [facility] Final Resul t [facility] [id number] [address] [id number] from Last 3 Months or Most Recently Relevant to Health Maintenance Insurance [place] Care Teams Energy Advisor Relationship Specialty Start Date End Date Laurie Hand FNP [facility] [facility] [address] [address] PCP - General Nurse Practitioner Family 09/30/24
[2024-12-30 18:51] LABS: Alanine Aminotransferase 60 U/L (6-35); Alkaline Phosphatase 68 U/L (38-126); Anion Gap 14 mmol/L (4-12); Aspartate Amino Transferase 60 U/L (14-36); Bilirubin,Total 0.7 mg/dL (0.2-1.3); Blood Urea Nitrogen 11 mg/dL (7-17); Calcium 9.9 mg/dL (8.4-10.2); Carbon Dioxide 24 mmol/L (22-30); Chloride 100 mmol/L (98-107); Estimated Glomerular Filt Rate > 60; Glucose 97 mg/dL (65-110); Potassium 4.3 mmol/L (3.4-5.0); Sodium 138 mmol/L (137-145)
[2024-12-30 18:53] LABS: Iron 127 ug/dL (37-170)
[2024-12-30 19:05] LABS: Percent Iron Saturation 33 % (20-50)
[2024-12-30 19:16] LABS: Thyroid Stimulating Hormone 0.701 uIU/mL (0.465-4.680)
[2024-12-30 19:25] LABS: Hepatitis B Surface Antigen Negative (Negative)
[2024-12-30 19:42] LABS: Hepatitis B Surface Anti Res Negative; Hepatitis C Virus Antibody Negative (Negative)
[2025-01-01 02:58] LABS: Hepatitis B Core Ab Total NON-REACTIVE (NON-REACTIVE)
== END 2024-12-30 12:34 | disposition home or self-care (01) ==
LOC: ANHGOSHLAB 12:34
PROVIDERS: PCP Family Medicine; Visit Provider Student in an Organized Health Care Education/Training Program
DX: R79.89 Other specified abnormal findings of blood chemistry (principal)
CPT/HCPCS: 36415; 80053; 83540; 83550; 84443; 86704; 86706; 86803; 87340

== ENCOUNTER 2025-08-03 09:09 | Outpatient (CLI) | payer BC, OTHER, SELFPAY ==
[2025-08-03 20:52] LABS: Thyroid Stimulating Hormone Reflex 0.411 uIU/mL (0.465-4.68)
[2025-08-03 23:14] LABS: Alanine Aminotransferase 35 U/L (6-35); Albumin Level 4.8 g/dL (3.5-5.1); Alkaline Phosphatase 52 U/L (38-126); Anion Gap 9 mmol/L (4-12); Aspartate Amino Transferase 41 U/L (14-36); Bilirubin,Total 0.4 mg/dL (0.2-1.3); Blood Urea Nitrogen 12 mg/dL (7-17); Calcium 9.8 mg/dL (8.4-10.2); Carbon Dioxide 25 mmol/L (22-30); Chloride 104 mmol/L (98-107); Estimated Glomerular Filt Rate > 60; Glucose 92 mg/dL (65-110); Potassium 4.4 mmol/L (3.4-5.0); Sodium 138 mmol/L (137-145); Total Protein 7.8 g/dL (6.3-8.2)
[2025-08-04 03:49] LABS: Free T4 Free Thyroxine Reflex 1.02 ng/dL (0.78-2.19)
[2025-08-04 04:04] LABS: Total Triiodothyronine (T3) 1.07 NG/ML (0.82-1.58)
== END 2025-08-03 09:10 | disposition home or self-care (01) ==
LOC: ANHGOSHLAB 09:11
PROVIDERS: PCP Nurse Practitioner Family; Visit Provider Nurse Practitioner Family
DX: R74.8 Abnormal levels of other serum enzymes (principal); E55.9 Vitamin D deficiency, unspecified; E05.90 Thyrotoxicosis, unspecified without thyrotoxic crisis or storm
CPT/HCPCS: 36415; 80053; 82306; 84439; 84443; 84480